=== PATIENT | male | born 1975 | race Two or more races ===

== ENCOUNTER 2024-02-17 12:18 | Inpatient (IN) | payer OTHER ==
[~2024-02-17] VITALS: Ht 188 cm; Wt 131.0 kg
[2024-02-17] MEDS ORDERED: SODIUM CHLORIDE 0.9% 2,400 ML IV ONE (12:45)
[2024-02-17] MEDS ORDERED: 0.9% SODIUM CHLORIDE 10 ML SYRINGE IVP PRN (12:45)
[2024-02-17] MEDS: SODIUM CHLORIDE 0.9% 1,000 ML IV ONE ×2 (13:17→14:18)
[2024-02-17] MEDS: ACETAMINOPHEN 1000 MG/ISO-OSM 100 ML IV ONE (13:18)
[2024-02-17 13:32] LABS: BASOPHILS % (AUTO) 0.4 % (0.0-2.0); EOSINOPHILS % (AUTO) 0.1 % (1.0-6.0); HEMATOCRIT 35.6 % (41-53); HEMOGLOBIN 11.6 g/dL (13.5-17.5); LYMPHOCYTES # (AUTO) 0.8 K/uL (1.0-4.8); LYMPHOCYTES % (AUTO) 3.9 % (22.0-44.0); MEAN CORPUSCULAR HEMOGLOBIN 26.6 pg (26.0-34.0); MEAN CORPUSCULAR HGB CONC 32.7 G/dL (31.0-37.0); MEAN CORPUSCULAR VOLUME 81 fL (80-100); MONOCYTES # (AUTO) 0.9 K/uL (0.1-1.0); MONOCYTES % (AUTO) 4.8 % (2.0-9.0); NEUTROPHILS # (AUTO) 17.7 K/uL (1.8-7.7); PLATELET COUNT (AUTO) 168 K/uL (150-450); RED BLOOD CELL COUNT(AUTO) 4.38 MIL/uL (4.50-5.90); RED CELL DISTRIBUTION WIDTH 13.8 % (11.5-14.5); WHITE BLOOD COUNT (AUTO) 19.5 K/uL (4.5-11.0)
[2024-02-17 13:37] LABS: ANION GAP 8 mmol/L (8-16); CALCIUM, TOTAL 7.8 mg/dL (8.8-10.5); CARBON DIOXIDE 27 mmol/L (22-29); CHLORIDE 97 mmol/L (98-107); CREATININE 0.74 mg/dL (0.60-1.30); GLOMERULAR FILTR. RATE CALC > 60 mL/min (>60); GLUCOSE,RANDOM 121 mg/dL (70-110); POTASSIUM 3.8 mmol/L (3.5-5.1); SODIUM SERUM 132 mmol/L (136-145); UREA NITROGEN, BLOOD 10 mg/dL (7-18)
[2024-02-17 13:45] LABS: TROPONIN I-HIGH SENSITIVITY 7 ng/L (<76)
[2024-02-17 13:46] LABS: LACTIC ACID 0.8 mmol/L (0.4-2.0)
[2024-02-17 13:49] LABS: NEUTROPHILS % (AUTO) 90.8 % (40.0-70.0)
[2024-02-17 13:57] LABS: B-TYPE NATRIURETIC PEPTIDE 91 pg/mL (0-100)
[2024-02-17 14:03] LABS: ALANINE AMINOTRANSFERASE 28 U/L (12-78); ALBUMIN 2.9 g/dL (3.4-5.0); ALKALINE PHOSPHATASE 114 U/L (46-116); ASPARTATE AMINOTRANSFERASE 27 U/L (15-37); CREATINE KINASE, TOTAL ONLY 132 U/L (39-308); TOTAL PROTEIN, SERUM 7.8 g/dL (6.4-8.2)
[2024-02-17] MEDS: CefTRIAXone 1 GM/DEXTROSE 50 ML IV SCH (14:17)
[2024-02-17] MEDS: VANCOMYCIN 1.25 GM/WATER(PEG) 250 ML IV ONE (14:28)
[2024-02-17 15:28] LABS: APPEARANCE,URINE CLEAR (CLEAR); BILIRUBIN,URINE NEGATIVE (NEGATIVE); COLOR,URINE COLORLESS (YELLOW); GLUCOSE, URINE (UA) NEGATIVE (NEGATIVE); KETONES,URINE NEGATIVE (NEGATIVE); LEUKOCYTE ESTERASE ,URINE NEGATIVE (NEGATIVE); NITRATE,URINE NEGATIVE (NEGATIVE); OCCULT BLOOD,URINE MODERATE (NEGATIVE); PH,URINE 7.5 (5.0-8.0); PROTEIN,URINE NEGATIVE (NEGATIVE); SPECIFIC GRAVITIY, URINE 1.004 (1.003-1.030); UROBILINOGEN,URINE <=1.0 mg/dL (<=1.0)
[2024-02-17 15:44] LABS: BACTERIA,URINE Rare /HPF (None Seen); SQUAMOUS EPITHELIAL CELL,UR Rare /LPF (None Seen); WBC,URINE 0-2 /HPF (0-5)
[2024-02-17 16:35] VITALS: BP 141/67; PULSE 78; RESP 20; TEMP 98.5
[2024-02-17] MEDS ORDERED: ZOLPIDEM TARTRATE 5 MG TABLET PO PRN (16:45)
[2024-02-17] MEDS ORDERED: ONDANSETRON HCL 4 MG/2 ML VIAL IVP PRN (16:45)
[2024-02-17] MEDS ORDERED: ACETAMINOPHEN 325 MG TABLET PO PRN (16:45)
[2024-02-17] MEDS: DOCUSATE SODIUM 100 MG CAPSULE PO SCH (20:28)
[2024-02-17 21:13] VITALS: BP 118/65; PULSE 80; RESP 18; TEMP 99.1
[2024-02-17] MEDS: VANCOMYCIN 1.25 GM/WATER(PEG) 250 ML IV SCH (23:53)
[2024-02-17] MEDS: HEPARIN SODIUM,PORCINE 5,000 UNITS/ML VIAL SQ SCH (23:53)
[2024-02-18 06:15] VITALS: BP 130/69; PULSE 71; RESP 20; TEMP 98.4
[2024-02-18] MEDS: FAMOTIDINE 20 MG TABLET PO SCH (07:48)
[2024-02-18 08:11] LABS: ANION GAP 7 mmol/L (8-16); CALCIUM, TOTAL 8.2 mg/dL (8.8-10.5); CARBON DIOXIDE 26 mmol/L (22-29); CHLORIDE 103 mmol/L (98-107); CREATININE 0.71 mg/dL (0.60-1.30); GLOMERULAR FILTR. RATE CALC > 60 mL/min (>60); GLUCOSE,RANDOM 100 mg/dL (70-110); POTASSIUM 3.7 mmol/L (3.5-5.1); SODIUM SERUM 136 mmol/L (136-145); UREA NITROGEN, BLOOD 12 mg/dL (7-18)
[2024-02-18 10:07] LABS: BASOPHILS % (AUTO) 0.2 % (0.0-2.0); HEMATOCRIT 39.5 % (41-53); HEMOGLOBIN 12.9 g/dL (13.5-17.5); LYMPHOCYTES # (AUTO) 1.1 K/uL (1.0-4.8); LYMPHOCYTES % (AUTO) 11.8 % (22.0-44.0); MEAN CORPUSCULAR HGB CONC 32.7 G/dL (31.0-37.0); MEAN CORPUSCULAR VOLUME 83 fL (80-100); MONOCYTES # (AUTO) 0.9 K/uL (0.1-1.0); MONOCYTES % (AUTO) 9.3 % (2.0-9.0); NEUTROPHILS # (AUTO) 7.4 K/uL (1.8-7.7); NEUTROPHILS % (AUTO) 77.7 % (40.0-70.0); PLATELET COUNT (AUTO) 162 K/uL (150-450); RED BLOOD CELL COUNT(AUTO) 4.78 MIL/uL (4.50-5.90); RED CELL DISTRIBUTION WIDTH 14.3 % (11.5-14.5); WHITE BLOOD COUNT (AUTO) 9.5 K/uL (4.5-11.0)
[2024-02-18 21:13] VITALS: BP 129/62; PULSE 86; RESP 18; TEMP 98.6
[2024-02-19] MEDS ORDERED: SODIUM CHLORIDE 0.9% 1,000 ML ONE (04:24)
[2024-02-19 04:57] VITALS: BP 134/76; PULSE 73; RESP 19; TEMP 97.8
[2024-02-19 08:16] VITALS: BP 148/83; PULSE 70; RESP 18; TEMP 97.8
[2024-02-19] MEDS: ASPIRIN 81 MG CHEWABLE TABLET PO SCH (08:16)
[2024-02-19] MEDS: SULFAMETHOX/TRIMETH DS 800-160 MG/TABLET PO SCH (08:16)
[2024-02-19] MEDS ORDERED: ASPI-1450 PO (10:00)
[2024-02-19] MEDS ORDERED: FAMO20 PO (10:00)
[2024-02-19] MEDS ORDERED: SULF1TAB PO (10:01)
[2024-02-19] MEDS ORDERED: ACET-2247 PO (10:02)
[2024-02-19 10:11] VITALS: BP 144/78; PULSE 72; RESP 20; TEMP 98.3
[2024-02-19 10:22] LABS: ANION GAP 9 mmol/L (8-16); CALCIUM, TOTAL 8.5 mg/dL (8.8-10.5); CARBON DIOXIDE 25 mmol/L (22-29); CHLORIDE 103 mmol/L (98-107); CREATININE 0.68 mg/dL (0.60-1.30); GLOMERULAR FILTR. RATE CALC > 60 mL/min (>60); GLUCOSE,RANDOM 167 mg/dL (70-110); POTASSIUM 3.7 mmol/L (3.5-5.1); SODIUM SERUM 137 mmol/L (136-145); UREA NITROGEN, BLOOD 11 mg/dL (7-18); VANCOMYCIN,RANDOM 9.8 mcg/mL (25.0-50.0)
== END 2024-02-19 14:10 | DRG 872 ==
LOC: EMS 12:22 → 6S 14:33
PROVIDERS: ADMIT Internal Medicine; ATTEND Internal Medicine
DX: A41.9 Sepsis, unspecified organism (principal); L03.116 Cellulitis of left lower limb; L03.115 Cellulitis of right lower limb; E66.9 Obesity, unspecified; I87.8 Other specified disorders of veins; Z88.0 Allergy status to penicillin; Z68.37 Body mass index [BMI] 37.0-37.9, adult
CPT/HCPCS: 71045; 80048; 80053; 80202; 81001; 82550; 83605; 83880; 84145; 84484; 85025; 87040; 93005; 93306; 99285; J0131; J0696; J1644; J7030; Q9967; 36415-L1; 36415-TC